=== PATIENT | female | born 1995 | race African-American/Black ===

== ENCOUNTER 2017-12-26 09:13 | Emergency (ER) | payer SELFPAY ==
[~2017-12-26] VITALS: Ht 162.6 cm; Wt 55.0 kg
[2017-12-26 09:17] VITALS: BP 112/82; PULSE 66; RESP 19; TEMP 98.2; O2SAT 99
--- NOTE | 2017-12-26 09:33 | PD ---
HPI Chief Complaint: Oral / Dental Pain or Problem Time Seen by Provider: 09:32 Travel History International Travel<30 days: No Contact w/Intl Traveler<30days: No Traveled to known affect area: No History of Present Illness HPI 21-year-old F [place]ian female presents emergency department with recurrent dental pain and swelling above the left #9 tooth. Patient states this is the fourth time he has been bothersome to her. She is seen her dentist for in the past but there is no obvious cavity. Pain and swelling is in the right upper lip extending into the right lower cheek. Pain is 8 out of 10. Patient denies any significant skin sores. She has no fever or chills. Patient has no difficulty swallowing. She has allergies to Ondansetron. [facility] Social History Alcohol Use: Yes Tobacco Use: No Substance Use: No Allergies-Medications (Allergen,Severity, Reaction): Coded Allergies: ondansetron (Verified Allergy, Severe, Hives, 12/26/17) Reported Meds & Prescriptions Reported Meds & Active Scripts Active Magic Mouthwash Adult Liq (Multi-Ingredient Mouthwash/Gargle) 120 Ml Susp 10 Ml SWISH-SPIT Q2HR Each 5mL contains: Nystatin 200,000units, Diphenhydramine 4.25mg, Viscous Lidocaine 10mg, Salgado syrup 0.8 mL Ibuprofen 600 Mg Tab 600 Mg PO Q6H PRN Penicillin V Potassium 500 Mg Tab 500 Mg PO Q6H 10 Days Review of Systems Except as stated in HPI: all other systems reviewed are Neg General / Constitutional: No: Fever, Chills Eyes: No: Visual changes HENT: Positive: Dental Difficulties, No: Headaches, Vertigo, Lightheadedness, Sore Throat, Rhinitis, Rhinorrhea, Congestion, Nosebleed, Neck Stiffness, Neck Pain, Gingival Bleeding, Earache Cardiovascular: No: Chest Pain or Discomfort Respiratory: No: Shortness of Breath Gastrointestinal: No: Abdominal Pain Genitourinary: No: Dysuria Musculoskeletal: No: Myalgias, Arthralgias, Limited ROM, Pain Skin: No Rash Neurologic: No: Weakness Psychiatric: No: Depression Endocrine: No: Polydipsia Hematologic/Lymphatic: No: Easy Bruising Physical Exam Narrative GENERAL: Patient appears in no acute distress. SKIN: Warm and dry. Normal color. Normal turgor. HEAD: Atraumatic. Normocephalic. Patient has tenderness to the left upper lip and lower left cheek. EYES: Pupils equal and round. No scleral icterus. No injection or drainage. ENT: No nasal bleeding or discharge. Mucous membranes pink and moist. Teeth actually appearing good condition. There is swelling and tenderness to the right upper gingiva above #9 tooth. No drainable abscess is noted. Pharynx is clear. Airway is patent. NECK: Trachea midline. Supple and nontender. CARDIOVASCULAR: Regular rate and rhythm. RESPIRATORY: No accessory muscle use. Clear to auscultation. Breath sounds equal bilaterally. MUSCULOSKELETAL: Extremities without clubbing, cyanosis, or edema. No obvious deformities. NEUROLOGICAL: Awake and alert. No obvious cranial nerve deficits. Motor grossly within normal limits. Five out of 5 muscle strength in the arms and legs. Normal speech. PSYCHIATRIC: Appropriate mood and affect; insight and judgment normal. Data Data Last Documented VS Vital Signs Date Time Temp Pulse Resp B/P (MAP) Pulse Ox O2 Delivery O2 Flow Rate FiO2 12/26/17 09:17 98.2 66 19 112/82 (92) 99 MDM Medical Decision Making Medical Screen Exam Complete: Yes Emergency Medical Condition: Yes Differential Diagnosis Dental pain. Dental caries. Dental abscess. Narrative Course Patient is medically stable Patient given Pen-Vee K 500 mg 4 times daily 10 days. Patient given ibuprofen 600 mg 4 times daily 10 days. Patient given Magic mouthwash as directed 120 mL's with 2 refills. Patient to follow-up with dentist as discussed. Diagnosis Primary Impression: Dental abscess Additional Instructions: Patient given Pen-Vee K 500 mg 4 times daily 10 days. Patient given ibuprofen 600 mg 4 times daily 10 days. Patient given Magic mouthwash as directed 120 mL's with 2 refills. Patient to follow-up with dentist as discussed. Scripts Likfzuqd-Wvjopnnriabthfy-Gulsuiive Liq (Magic Mouthwash Adult Liq) 120 Ml Susp 10 ML SWISH-SPIT Q2HR for Mouth sores, #120 ML 2 Refills Each 5mL contains: Nystatin 200,000units, Diphenhydramine 4.25mg, Viscous Lidocaine 10mg, Salgado syrup 0.8 mL Prov: Bridger Saavedra MD 12/26/17 Ibuprofen (Ibuprofen) 600 Mg Tab 600 MG PO Q6H Y for Pain/Inflammation, #40 TAB 0 Refills Prov: Bridger Saavedra MD 12/26/17 Penicillin V Potassium (Penicillin V Potassium) 500 Mg Tab 500 MG PO Q6H for Infection for 10 Days, #40 TAB 0 Refills Prov: Bridger Saavedra MD 12/26/17 Disposition: 01 DISCHARGE HOME Condition: Stable [facility] Dec 26, 2017 09:32
[2017-12-26] MEDS ORDERED: MAGICADU2 SWISH-SPIT (09:42)
[2017-12-26] MEDS ORDERED: IBUP-232 PO (09:42)
[2017-12-26] MEDS ORDERED: PENI500T PO (09:42)
== END 2017-12-26 10:01 | disposition home or self-care (01) ==
LOC: NEPD 09:13
DX: K04.7 Periapical abscess without sinus (principal); Z88.8 Allergy status to other drugs, medicaments and biological substances
CPT/HCPCS: 99283

== ENCOUNTER 2017-12-27 08:41 | Emergency (ER) | payer SELFPAY ==
[~2017-12-27] VITALS: Ht 162.6 cm; Wt 53.0 kg
[~2017-12-27 08:41] MED LIST: IBUP-232 PO; MAGICADU2 SWISH-SPIT; PENI500T PO
[2017-12-27 08:44] VITALS: BP 137/71; PULSE 71; RESP 16; TEMP 98.6; O2SAT 98
--- NOTE | 2017-12-27 09:10 | PD ---
HPI Chief Complaint: Oral / Dental Pain or Problem Time Seen by Provider: 09:00 Travel History International Travel<30 days: No Contact w/Intl Traveler<30days: No Traveled to known affect area: No History of Present Illness HPI 21-year-old -Turkish female presents emergency department with worsening swelling with what appears to be abscess to the anterior left upper gingival region. Patient was seen yesterday and placed on Pen-Vee K, and ibuprofen. Patient denies fever or chills. Patient states her facial swelling seems to have improved. She is allergic to Zofran. PFSH Social History Alcohol Use: Yes Tobacco Use: No Substance Use: No Allergies-Medications (Allergen,Severity, Reaction): Coded Allergies: ondansetron (Verified Allergy, Severe, Hives, 12/26/17) Reported Meds & Prescriptions Reported Meds & Active Scripts Active Magic Mouthwash Adult Liq (Multi-Ingredient Mouthwash/Gargle) 120 Ml Susp 10 Ml SWISH-SPIT Q2HR Each 5mL contains: Nystatin 200,000units, Diphenhydramine 4.25mg, Viscous Lidocaine 10mg, Salgado syrup 0.8 mL Ibuprofen 600 Mg Tab 600 Mg PO Q6H PRN Penicillin V Potassium 500 Mg Tab 500 Mg PO Q6H 10 Days Review of Systems Except as stated in HPI: all other systems reviewed are Neg General / Constitutional: No: Fever Eyes: No: Visual changes HENT: Positive: Dental Difficulties, No: Headaches Cardiovascular: No: Chest Pain or Discomfort Respiratory: No: Shortness of Breath Gastrointestinal: No: Abdominal Pain Genitourinary: No: Dysuria Musculoskeletal: No: Pain Skin: No Rash Neurologic: No: Weakness Psychiatric: No: Depression Endocrine: No: Polydipsia Hematologic/Lymphatic: No: Easy Bruising Physical Exam Narrative GENERAL: Patient appears in no acute distress per SKIN: Warm and dry. Normal color. Normal turgor HEAD: Atraumatic. Normocephalic. Less facial swelling noted. EYES: Pupils equal and round. No scleral icterus. No injection or drainage. ENT: No nasal bleeding or discharge. Mucous membranes pink and moist. Patient has obvious small localized abscess to the upper middle gingiva over the #9 tooth. It has pointing present. I&D is performed. NECK: Trachea midline. Supple and nontender. CARDIOVASCULAR: Regular rate and rhythm. RESPIRATORY: No accessory muscle use. Clear to auscultation. Breath sounds equal bilaterally. MUSCULOSKELETAL: Extremities without clubbing, cyanosis, or edema. No obvious deformities. NEUROLOGICAL: Awake and alert. No obvious cranial nerve deficits. Motor grossly within normal limits. Five out of 5 muscle strength in the arms and legs. Normal speech. PSYCHIATRIC: Appropriate mood and affect; insight and judgment normal. Data Data Last Documented VS Vital Signs Date Time Temp Pulse Resp B/P (MAP) Pulse Ox O2 Delivery O2 Flow Rate FiO2 12/27/17 08:44 98.6 71 16 137/71 (93) 98 MDM Medical Decision Making Medical Screen Exam Complete: Yes Emergency Medical Condition: Yes Medical Record Reviewed: Yes Differential Diagnosis Dental pain. Dental abscess. I&D. Narrative Course I&D of abscesses performed. See procedure note Patient is to continue previous medications. Patient to return if symptoms worsen as needed. Procedures Procedure Narrative After the risks and benefits were discussed the following procedure was performed: INCISION AND DRAINAGE OF ABSCESS: The area was prepped and was sterilely draped. A number 11 scalpel was used to make a 0.4-cm incision across the area of the abscess. The abscess was drained an irrigated with normal saline. Diagnosis Primary Impression: Dental abscess Referrals: Dentist Patient Instructions: Abscess Incision and Drainage (DC), General Instructions Additional Instructions: I&D of abscesses performed. See procedure note Patient is to continue previous medications. Patient to return if symptoms worsen as needed. Med/Other Pt SpecificInfo: No Change to Meds Disposition: 01 DISCHARGE HOME Condition: Stable [facility] Dec 27, 2017 09:10
== END 2017-12-27 09:29 | disposition home or self-care (01) ==
LOC: NEPD 08:41
DX: K04.7 Periapical abscess without sinus (principal); Z88.8 Allergy status to other drugs, medicaments and biological substances
CPT/HCPCS: 41800

== ENCOUNTER 2018-02-08 07:14 | Emergency (ER) | payer SELFPAY ==
[~2018-02-08] VITALS: Ht 154.9 cm; Wt 53.0 kg
[2018-02-08 07:24] VITALS: BP 159/93; PULSE 82; RESP 18; TEMP 99; O2SAT 100
== END 2018-02-08 08:30 | disposition left against medical advice (07) ==
LOC: NED 07:14
DX: R05 Cough (principal); Z53.21 Procedure and treatment not carried out due to patient leaving prior to being seen by health care provider
CPT/HCPCS: 99281